=== PATIENT | female | born 1940 | race Caucasian/White ===

== ENCOUNTER 2024-01-16 20:45 | Emergency (ER) | payer OTHER, SELFPAY ==
[2024-01-16 20:47] VITALS: BP 216/102
--- NOTE | 2024-01-16 22:14 | ED.SKININJ ---
HPI-Injury
General
Chief Complaint: Skin Surface Trauma
Source: patient and family
Exam Limitations: none
Time Seen by Provider: 01/16/24 21:45
Nursing documentation reviewed up to this point in time: agreed with except (Injury to left lower leg)
Travel History
Have you had any contact with someone who has COVID-19?: No
Do you have any symptoms of coronavirus? Fever > 100 degrees, chills, cough, shortness of breath, sore throat, loss of taste or smell, muscle aches, or headache?: No
History of Present Illness-Injury
Initial Injury comments:
83-year-old female presents emergency department due to a laceration in her left lower leg after tripping over weights on the floor.
Past History
Past History
ED Past Medical History: HTN and Other (Ovarian cysts)
ED Past Surgical History: Gynecological (Hysterectomy)
Social History
Tobacco: Non-smoker
Alcohol: None
Drug: None
Living: with family
Review of Systems
Review of Systems
Allergies reviewed?: Yes
All Other Systems: Not applicable
Constitutional: Reports no symptoms
Skin: Reports other (laceration)
Neurological: Reports no symptoms
Endocrine: Reports no symptoms
Skin Exam
Laceration
Left Lower Anterior Medial Leg:
Length in cm: 5
Orientation: L shaped
Type of Laceration: simple
Any active bleeding?: low grade venous oozing
Distal skin color and temperature: normal-warm & good color
Normal distal neurovascular exam: Yes
Range of motion: full
Phy Exam
Physical Exam
Physical Exam:
Physical Exam
General: no apparent distress, not acutely ill
Neck: supple. no meningeal signs.
HEENT: Pupils equal round reactive to light, EOMI
Lungs: no acute respiratory distress. clear bilaterally
Abdomen: Nondistended
Neuro: alert and oriented. no focal neurological deficits cranial nerves II through XII intact
Skin: no rash laceration left lower leg
Psychiatric: well kept. interactive and cooperative
Extremities: no edema. no calf tenderness. negative homans. good distal pulses
Course
Orders/Labs/Results
Orders:
Orders
01/16/24 22:13
Tetanus/Diphth/Acelpertussis [Adacel] 0.5 ml IM .ONCE ONE
Vital Signs
Initial and Last Documented VS:
Initial Vital Signs
Temp Pulse Resp BP Pulse Ox
97.8 F 72 18 216/102 100
01/16/24 20:47 01/16/24 20:47 01/16/24 20:47 01/16/24 20:47 01/16/24 20:47
Last Documented Vital Signs
Temp Pulse Resp BP Pulse Ox
97.8 F 72 18 216/102 100
01/16/24 20:47 01/16/24 20:47 01/16/24 20:47 01/16/24 20:47 01/16/24 20:47
Procedures
Laceration Closure
Left Lower Anterior Leg:
Status of Wound: clean
Size of Wound in cm: 5
Description of Wound Edges: sharp
Preparation: cleaned with saline
Anesthesia: 1% Lidocaine with epi
Revision/Debridement: routine- no revision
Wound exploration: explored to base- no FB
Type of Closure: single layer closure
Skin Closure Material: 4-0 nylon
Number of sutures: 8
MDM/Problems Addressed
Differential Diagnosis Includes:
Fracture, leg laceration
MDM/Problems Addressed:
83-year-old female with left lower leg laceration, repaired, tetanus booster given
Chronic conditions affecting care: HTN
Acute Exacerbation and/or Progression of Chronic Illness: HTN
*Pulse Oximetry
Patient hypoxic: no
*EKG
Interpreted by ED Provider?: NA
*Music Professor Interpretation
Rate: Music Professor- N/A
*Critical Care Note
Total Time (30-74mins, 75-104mins- exclusive of procedures): Not Applicable
Data Reviewed
Prescriptions/Medications Considered But Not Given:
Antibiotics not indicated
Patient Management
Social determinants of health affecting care: Living situation
Escalation/DeEscalation of care consider admission/obs:
Admit not indicated
ED Attending Note
-
Portions of this chart may have been created with voice recognition software.� Occasional wrong word or��sound alike� substitutions may have occurred due to the inherent limitations of voice recognition software.
Discharge Plan
Departure
Patient Disposition: Home (Routine Discharge)
Date of Disposition: 01/16/24
Time of Disposition: 22:21
Patient with high blood pressure during this ER visit?: Yes
Condition: Good
Discharge Problem:
Laceration of left leg
Instructions: Laceration Repair With Stitches (DC), BLOOD PRESSURE
Activity Restrictions/Additional Instructions:
Follow-up with primary care, urgent care or emergency department in 10 days for suture removal. Return for any concerns.
Interventions
Interventions:
*Risk Screen - Suicide Last Done: 01/16/24 20:47
*Neglect/Abuse Screening Last Done: 01/16/24 20:47
ED- Fall Risk Assessment Last Done: 01/16/24 21:24
ED-Skin Assessment Last Done: 01/16/24 21:24
[2024-01-16 22:17] VITALS: BP 191/95
[2024-01-16] MEDS: ADACEL 0.5 ML IM (22:19)
== END 2024-01-16 22:30 | disposition home or self-care (01) ==
LOC: EMR 20:45
PROVIDERS: EMERGENCY PHYSICIAN Emergency Medicine; FAMILY PHYSICIAN Internal Medicine
DX: S81.812A Laceration without foreign body, left lower leg, initial encounter (principal); W22.8XXA Striking against or struck by other objects, initial encounter; I10 Essential (primary) hypertension; Z23 Encounter for immunization; Z90.710 Acquired absence of both cervix and uterus
CPT/HCPCS: 99282; 12002; 90471; 90715